=== PATIENT | male | born 1995 | race Caucasian/White ===

== ENCOUNTER 2024-03-12 20:51 | Inpatient (IN) | payer OTHER, SELFPAY ==
[2024-03-12] VITALS (14 sets, daily range): BP systolic 108–148; BP diastolic 73–92
--- NOTE | 2024-03-12 12:30 | ED.GENMED ---
ED Provider Triage
<Ángel Driscoll PA-C - Last Filed: 03/12/24 12:31>
-
Patient seen by provider in Triage?: Seen in Triage
Attestation: A medical screening examination has been initiated by a qualified medical provider. Based on the assessment performed at this time, it has been determined that an emergent medical condition may exist and the patient has been informed
that further medical evaluation and possible additional diagnostic testing may be needed.
HPI: 29-year-old male presents the emergency department for evaluation of fever, chest discomfort, nausea and vomiting. He is status post open mitral and aortic valve replacement due to endocarditis performed at [facility] on February 18. He is
currently on acute 4-hour ampicillin via PICC line. Developed vomiting this morning. Febrile for EMS. Not on any anticoagulants. He denies any opiate use, denies illicit substance use
GENERAL: Fatigued, falls asleep easily
EYE: No visual abnormalities.
NECK: Trachea midline
ENT: No visible abnormalities.
LUNGS: No acute respiratory distress
NEUROLOGICAL: Alert and oriented
SKIN: Skin intact. No visible changes.
MUSCULOSKELETAL: Moving extremities normally
PSYCH: Normal and appropriate interaction.
A/P: Patient febrile and tachycardic in triage, concern for bacteremia in the setting of central lines, he is quite somnolent. Easily, concern for substance use versus metabolic encephalopathy. Will obtain sepsis labs, chest x-ray for confirmation
of PICC line placement
This is a medical evaluation conducted in person to initiate diagnostic evaluation and provide initial therapeutics. Please see further documentation by the treating clinician.
History of Present Illness
<Ángel Driscoll PA-C - Last Filed: 03/12/24 12:31>
General
Chief Complaint: Abdominal Symptoms
Time Seen by Provider: 03/12/24 13:38
<Harpreet Mcallister PA-C - Last Filed: 03/12/24 17:22>
General
Source: patient, records and family
History of Present Illness
History of Present Illness:
29-year-old male with past medical history of hep C virus, previous substance abuse disorder (sober x 12 years), previous staph bacteremia causing endocarditis and multifocal septic emboli status post mechanical valve replacement 2021, replaced with
a bioprosthetic mitral valve in June 2022, recent admission in February of this year for recurring endocarditis send can Jose to [facility] with bacteremia, multifocal pneumonia, VDRF and new aortic insufficiency/mitral valve mass
subsequently transferred to [facility] where he was also found to have [employer] emboli, right ICA occlusion, mycotic aneurysm and status post sternotomy and mitral valve replacement and aortic valve replacement discharged on 02/29/2024 home with ampicillin and
Rocephin through right upper extremity PICC line presenting back to the emergency department today for evaluation of recurring nausea and vomiting and found to have a fever upon arrival to the ER. At present time patient just reports body aches and
generally feeling unwell and persistent fatigue. He has been giving himself the ampicillin and Rocephin as directed. Patient notes that he was unaware of the fever at home. Maintains that he is currently not using any IV substances or drugs.
Supposed to have follow-up with neurology and cardiology but unable to tell me when these follow-ups are.
Past History
<Ángel Driscoll PA-C - Last Filed: 03/12/24 12:31>
Past History
ED Past Medical History: Psychiatric (depression), Other (IVDA) and Other (psoriasis)
Patient has exhibited threatening behavior?: No
Social History
Tobacco: Smoker
Drug: Narcotics and IVDA
Personal: Single
Living: with family
Employment: Employed
<Harpreet Mcallister PA-C - Last Filed: 03/12/24 17:22>
Past History
ED Past Medical History: CVA and Valvular disease
ED Past Surgical History: Cardiac
Social History
Alcohol: None
Drug: Former user
Review of Systems
<Harpreet Mcallister PA-C - Last Filed: 03/12/24 17:22>
Review of Systems
All Other Systems: ROS reviewed and negative except as documented in HPI and ROS
Phy Exam
<Harpreet Mcallister PA-C - Last Filed: 03/12/24 17:22>
Physical Exam
Physical Exam:
GENERAL: Sleepy but arousable to voice and tactile stimuli but still is very tired and intermittently falls asleep during questioning
HEAD: NCAT
EYE: clear conjunctiva, pupils 3mm b/l
NECK: Supple
ENT: o/p clr, mmm.
CARDIAC: Regular rate and rhythm, systolic murmur .
LUNGS: Clear breath sounds bilaterally, no acute respiratory distress, no wheezes/rales/rhonchi
ABDOMEN: Soft, without focal tenderness, no r/g, no cvat
NEUROLOGICAL: Sleepy but arousable, answers questions appropriately
SKIN: Hot to the touch, skin intact. Diaphoretic, clammy
MUSCULOSKELETAL: No edema, well perfused.
PSYCH: Normal and appropriate interaction.
Scores
<Harpreet Mcallister PA-C - Last Filed: 03/12/24 17:22>
Heart Failure Risk
Heart Failure Risk Score: Not Applicable
Heart Score for Chest Pain Patients
STEMI patient?: Not applicable
Withdrawal Assessment of Alcohol
Withdrawal Assessment Completed?: Not applicable
Sepsis
<Harpreet Mcallister PA-C - Last Filed: 03/12/24 17:22>
Sepsis Screening
Sepsis Assessment: Sepsis
Sepsis Screen
Sepsis Screen: Sepsis
Date: 03/12/24
Time: 17:20
Course
<Ángel Driscoll PA-C - Last Filed: 03/12/24 12:31>
Orders/Labs/Results
Orders:
Orders
03/12/24
Electrocardiogram (*1) Stat
Comment: DONE EMR
03/12/24 12:27
CR Chest Single View Urgent
Comment:
Reason For Exam: PICC confirmation
03/12/24 12:28
Blood Culture Urgent
ARMANDO Source: Blood/Venous
Specimen Description:
03/12/24 12:34
Acetaminophen [Tylenol] 650 mg .ROUTE .STK-MED ONE
03/12/24 12:35
Acetaminophen [Tylenol] 650 mg PO NOW STA
03/12/24 12:51
COVID-19 Antigen Urgent
Source: Nasal Swab
Influenza A+B Rapid Molecular Urgent
ARMANDO Source: Nasal Swab
Specimen Description:
03/12/24 13:30
Complete Blood Count/With Diff Urgent
Comprehensive Metabolic Panel Urgent
Lactic Acid Q4H
Comment: CANCEL 2nd LACTIC ACID IF 1st LACTIC ACID IS LESS THAN 2
Prothrombin Time Urgent
Blood Culture Routine
ARMANDO Source: Blood/Venous
Specimen Description:
03/12/24 13:39
Blood Culture Urgent
ARMANDO Source: Blood/Venous
Specimen Description:
03/12/24 13:59
0.9% Sodium Chloride 1000 ml [Nss] 1,000 ml IV BOLUS
03/12/24 15:02
Alteplase [Cathflo/Activase] 2 mg INTRACATH NOW STA
03/12/24 17:07
Urinalysis Reflex To Culture Urgent
Date Specimen was Collected: 03/12/24
Time Specimen was Collected: 17:06
03/12/24 17:14
Add On- LAB Urgent
Tests Added?: urine drug abuse screen
Abnormal Lab Results
03/12/24
13:30
RBC 3.93 L 10^6/uL
(4.70-6.10)
Hgb 10.9 L g/dL
(13.0-18.0)
Hct 33.6 L %
(39.0-52.0)
MCHC 32.4 L g/dL
(33.0-37.0)
RDW 15.5 H %
(11.5-14.5)
Abs Immat Gran (auto) 0.1 H 10^3/uL
(0-0.05)
Absolute Neuts (auto) 8.3 H 10^3/uL
(1.4-6.5)
Absolute Lymphs (auto) 0.7 L 10^3/uL
(1.2-3.4)
Immature Gran % 1.4 H %
(0-0.5)
Neutrophils % 85.8 H %
(42.2-75.2)
Lymphocytes % 7.4 L %
(20.5-51.1)
Potassium 5.2 H mmol/L
(3.5-5.1)
Creatinine 0.5 L mg/dL
(0.7-1.3)
Alkaline Phosphatase 193 H U/L
(38-126)
03/12/24 13:30
03/12/24 13:30
Vital Signs
Initial and Last Documented VS:
Initial Vital Signs
Temp Pulse Resp BP Pulse Ox
102 F H 125 15 135/86 98
03/12/24 12:26 03/12/24 12:26 03/12/24 12:26 03/12/24 12:26 03/12/24 12:26
Last Documented Vital Signs
Temp Pulse Resp BP Pulse Ox
102 F H 113 12 144/80 96
03/12/24 12:26 03/12/24 16:15 03/12/24 16:15 03/12/24 16:00 03/12/24 16:15
<Harpreet Mcallister PA-C - Last Filed: 03/12/24 17:22>
Orders/Labs/Results
Orders:
Orders
03/12/24
Electrocardiogram (*1) Stat
Comment: DONE EMR
03/12/24 12:27
CR Chest Single View Urgent
Comment:
Reason For Exam: PICC confirmation
03/12/24 12:28
Blood Culture Urgent
ARMANDO Source: Blood/Venous
Specimen Description:
03/12/24 12:34
Acetaminophen [Tylenol] 650 mg .ROUTE .STK-MED ONE
03/12/24 12:35
Acetaminophen [Tylenol] 650 mg PO NOW STA
03/12/24 12:51
COVID-19 Antigen Urgent
Source: Nasal Swab
Influenza A+B Rapid Molecular Urgent
ARMANDO Source: Nasal Swab
Specimen Description:
03/12/24 13:30
Complete Blood Count/With Diff Urgent
Comprehensive Metabolic Panel Urgent
Lactic Acid Q4H
Comment: CANCEL 2nd LACTIC ACID IF 1st LACTIC ACID IS LESS THAN 2
Prothrombin Time Urgent
Blood Culture Routine
ARMANDO Source: Blood/Venous
Specimen Description:
03/12/24 13:39
Blood Culture Urgent
ARMANDO Source: Blood/Venous
Specimen Description:
03/12/24 13:59
0.9% Sodium Chloride 1000 ml [Nss] 1,000 ml IV BOLUS
03/12/24 15:02
Alteplase [Cathflo/Activase] 2 mg INTRACATH NOW STA
03/12/24 17:07
Urinalysis Reflex To Culture Urgent
Date Specimen was Collected: 03/12/24
Time Specimen was Collected: 17:06
03/12/24 17:14
Add On- LAB Urgent
Tests Added?: urine drug abuse screen
Abnormal Lab Results
03/12/24
13:30
RBC 3.93 L 10^6/uL
(4.70-6.10)
Hgb 10.9 L g/dL
(13.0-18.0)
Hct 33.6 L %
(39.0-52.0)
MCHC 32.4 L g/dL
(33.0-37.0)
RDW 15.5 H %
(11.5-14.5)
Abs Immat Gran (auto) 0.1 H 10^3/uL
(0-0.05)
Absolute Neuts (auto) 8.3 H 10^3/uL
(1.4-6.5)
Absolute Lymphs (auto) 0.7 L 10^3/uL
(1.2-3.4)
Immature Gran % 1.4 H %
(0-0.5)
Neutrophils % 85.8 H %
(42.2-75.2)
Lymphocytes % 7.4 L %
(20.5-51.1)
Potassium 5.2 H mmol/L
(3.5-5.1)
Creatinine 0.5 L mg/dL
(0.7-1.3)
Alkaline Phosphatase 193 H U/L
(38-126)
03/12/24 13:30
03/12/24 13:30
Vital Signs
Initial and Last Documented VS:
Initial Vital Signs
Temp Pulse Resp BP Pulse Ox
102 F H 125 15 135/86 98
03/12/24 12:26 03/12/24 12:26 03/12/24 12:26 03/12/24 12:26 03/12/24 12:26
Last Documented Vital Signs
Temp Pulse Resp BP Pulse Ox
102 F H 113 12 144/80 96
03/12/24 12:26 03/12/24 16:15 03/12/24 16:15 03/12/24 16:00 03/12/24 16:15
Waterworks Operator consulted with Physician
Waterworks Operator consulted with physician?: Yes
Name of Physician Consulted: Gregorio
<Harpreet Mcallister PA-C - Last Filed: 03/12/24 17:22>
MDM/Problems Addressed
Differential Diagnosis Includes:
Recurring endocarditis, urinary tract infection, pneumonia, COVID, flu or other viral etiology postoperative infection, PICC line infection
MDM/Problems Addressed:
29-year-old male with extensive cardiac past medical history status post recent admission for Enterococcus endocarditis and bacteremia presenting to the ER with persistent nausea and vomiting starting yesterday, found to have a fever of 102 on
arrival. Patient remains tachycardic. He is somnolent in the room but arousable to voice but intermittently falls asleep during exam. Based off record review it appears patient was supposed to have follow-up with neurology yesterday. Unclear if
patient went to that appointment. Given patient's fever and tachycardia, will initiate sepsis workup. 3 sets of blood cultures ordered due to patient's history of the endocarditis. Given recent admission with very complex medical case will
consult with P with anticipation patient will require transfer back to their facility. Tylenol ordered while in triage for fever. IV fluids ordered. Patient continues with his ampicillin so we will hold on providing with any other antibiotics
at this time.
<Harpreet Mcallister PA-C - Last Filed: 03/12/24 17:22>
*Radiology
Radiology exam reviewed: radiology read reviewed
*Pulse Oximetry
Patient hypoxic: no
*EKG
Interpreted by ED Provider?: Yes
Comparison EKG: no changes
Heart Rate: 125
Rate: tachycardiac
Rhythm: sinus
[place]: right axis deviation
Ischemia: no ischemia
*Banquet Manager Interpretation
Rate: tachycardiac
Rhythm: sinus
*Critical Care Note
Total Time (30-74mins, 75-104mins- exclusive of procedures): 30
comment:
Critical care statement: A total of 30 minutes of critical care time was provided for this patient. This includes management of unstable vital signs, evaluation of the patient at bedside, reviewing the patient's pertinent medical records, discussion
with consultants, review of old EKGs and review of pertinent medical records. This time with separate from time utilized to perform the aforementioned documented procedures
Data Reviewed
Review of Other/Old Records Reveals: Labs, Records and Discharge Summary
Source: patient, records and family
<Harpreet Mcallister PA-C - Last Filed: 03/12/24 17:22>
Patient Management
Discussion with other providers: Hospitalist and Manager Fraud
Escalation/DeEscalation of care consider admission/obs:
Spoke to hospitalist attending at [facility] who initially requested that we consult with our hospitalist team for possibility of patient staying here. Case was discussed with our hospitalist team who would prefer patient be disposition back to help
given complexity of case and recent admission there. Attending hospitalist at [facility] accepts patient in transfer. Patient while he remains tachycardic is otherwise hemodynamically stable.
ED Attending Note
<Ángel Driscoll PA-C - Last Filed: 03/12/24 12:31>
-
Portions of this chart may have been created with voice recognition software.� Occasional wrong word or��sound alike� substitutions may have occurred due to the inherent limitations of voice recognition software.
Discharge Plan
Departure
Patient Disposition: Acute Care Hospital
Date of Disposition: 03/12/24
Time of Disposition: 16:03
Discharge Problem:
Fever
Prescriptions:
No Action
buprenorphine-naloxone [Suboxone] 1 EACH film
8 mg sublingual BID
multivitamin [Okg-Ixtmvm-Nalkk] 1 EACH tablet
1 ea PO DAILY
ibuprofen [Advil] 200 MG tablet
600 mg PO Q6HPRN PRN (Reason: as directed)
Referrals:
Joby Coronel MD [Family Provider] -
Hospital Transfer
Other hospital: [facility]
I certify that the patient requires transfer: Yes
Discussed case with accepting physician: Dr. Inman
Reason for transfer: higher level of care
Interventions
Interventions:
*Risk Screen - Suicide Last Done: 03/12/24 12:26
*General Assessment Last Done: 03/12/24 13:49
*Neglect/Abuse Screening Last Done: 03/12/24 13:49
ED- Fall Risk Assessment Last Done: 03/12/24 13:49
*ED COVID-19 Vaccine History Last Done: 03/12/24 13:49
YH-Laaedv-Agtslntfee Assessment Last Done: 03/12/24 13:49
ED- Neurological Assessment Last Done: 03/12/24 13:49
ED-Skin Assessment Last Done: 03/12/24 13:49
Discharge Date and Time
Print Language: TOGOLESE
[2024-03-12] MEDS: TYLENOL 650 MG PO (12:38)
[2024-03-12 13:15] LABS: COVID-19 Antigen Negative (Negative)
[2024-03-12 13:39] LABS: % Basophils 0.7 % (0-2); % Immature Granulocytes 1.4 % (0-0.5); % Lymphocytes 7.4 % (20.5-51.1); % Monocytes 3.7 % (1.7-9.3); % Neutrophils 85.8 % (42.2-75.2); Absolute Basophils 0.1 10^3/uL (0-0.2); Absolute Eosinophils 0.1 10^3/uL (0-0.7); Absolute Immature Granulocytes 0.1 10^3/uL (0-0.05); Absolute Lymphocytes 0.7 10^3/uL (1.2-3.4); Absolute Monocytes 0.4 10^3/uL (0.1-0.6); Absolute Neutrophils 8.3 10^3/uL (1.4-6.5); Hematocrit 33.6 % (39.0-52.0); Hemoglobin 10.9 g/dL (13.0-18.0); Mean Corp Hgb Conc. 32.4 g/dL (33.0-37.0); Mean Corpuscular Hgb 27.7 pg (27.0-31.0); Mean Corpuscular Volume 85.5 fL (80.0-94.0); Mean Platelet Volume 9.2 fL (7.4-10.4); Nucleated Red Blood Cells % 0 % (-); Platelet Count 211 10^3/uL (130-400); Red Blood Cell Count 3.93 10^6/uL (4.70-6.10); Red Cell Dist. Width 15.5 % (11.5-14.5); White Blood Cell Count 9.7 10^3/uL (4.8-10.8)
[2024-03-12 13:49] LABS: INR 1.12; PT 14.2 Sec (11.4-14.6)
[2024-03-12 13:54] LABS: ALT (SGPT) 39 U/L (0-50); AST (SGOT) 41 U/L (17-59); Albumin 4.6 g/dl (3.5-5.0); Alkaline Phosphatase 193 U/L (38-126); Blood Urea Nitrogen 16 mg/dl (9-20); Calcium 9.7 mg/dl (8.4-10.2); Carbon Dioxide 25 mmol/L (22-30); Chloride 98 mmol/L (98-107); Glucose 99 mg/dl (70-99); Potassium 5.2 mmol/L (3.5-5.1); Sodium 137 mmol/L (135-145); Total Bilirubin 0.6 mg/dl (0.2-1.3); Total Protein 7.9 g/dl (6.3-8.2); eGFR > 60.00
[2024-03-12] MEDS: CATHFLO/ACTIVASE 2 MG INTRACATH (15:33)
[2024-03-12] MEDS: NSS 1000 IV (16:00)
[2024-03-12 17:28] LABS: Urine Albumin Negative (Neg - Trace); Urine Bilirubin Negative (Negative); Urine Character Clear (Clear); Urine Color Yellow; Urine Glucose Negative (Negative); Urine Ketone Negative (Negative); Urine Leukocyte Negative (Negative); Urine Nitrite Negative (Negative); Urine Occult Blood Negative (Negative); Urine Urobilinogen Negative (Neg - 1+)
[2024-03-12 17:34] LABS: Amphetamines Negative (Negative); Barbiturates Negative (Negative); Benzodiazepines Negative (Negative); Buprenorphine Positive (Negative); Cocaine Negative (Negative); Marijuana Negative (Negative); Methadone Negative (Negative); Methamphetamines Negative (Negative); Opiates Negative (Negative); Phencyclidine Negative (Negative); Tricyclic Antidepressants Negative (Negative)
[2024-03-12 18:01] LABS: Fentanyl, Urine Negative (Negative)
[2024-03-12] MEDS: ROCEPHIN 2000 MG IV (18:15)
--- NOTE | 2024-03-12 20:48 | HPS.HSE ---
Family Physician
-
Family Physician: Joby Coronel
Chief Complaint
-
vomiting
History of Present Illness
29-year-old male past medical history of hepatitis C, prior substance abuse disorder sober for 12 years, previous staph bacteremia resulting endocarditis and multifocal septic emboli status post mechanical mitral valve replacement in 2021 replaced
with a bioprosthetic mitral valve in June 2022, recent admission in February of this year for recurring endocarditis/bacteremia, multifocal pneumonia Vent dependent respiratory failure and new aortic insufficiency/mitral valve mass for which she
was subsequently transferred to [facility] found to have [employer]NE[employer] emboli, right ICA occlusion, mycotic aneurysm status post sternotomy, mitral valve replacement, aortic valve replacement discharged on 02/28 with home ampicillin/Rocephin to right upper extremity
PICC line presenting to the emergency room for evaluation of nausea and vomiting and found to have a fever upon arrival to the ER. He denies shortness of breath or cough. He only has chest pain when he was vomiting. He denies dizziness or
syncope.
At the present time patient just reports body aches, really feeling unwell and persistent fatigue. He denies currently using IV drugs 10 years. He is supposed to follow-up with neurology and cardiology but does not know when the follow-up is.
He smokes a pack of cigarettes a day.
Medical History
Past Medical History
Past Medical History: Reports Other ( hepatitis C, prior substance abuse disorder sober for 12 years, previous staph bacteremia resulting endocarditis and multifocal septic emboli status post mechanical mitral valve replacement in 2021 replaced with
a bioprosthetic mitral valve in June 2022, recent admission in February of this yea)
Past Surgical History: Reports Other
Social History
Tobacco: Non-smoker
Alcohol: None
Drug: None
Family History
Family History: Not pertinent
Allergies / Home Medications
Allergies reflects when Allergies were last updated in [employer].
Home Medications with original date entered in [employer]
Allergy/Medication List:
Allergies
Allergy/AdvReac Type Severity Reaction Status Date / Time
Interferons Allergy numbness, Verified 06/21/17 11:38
unable
speak,
visual
probs
Home Medications
buprenorphine 8 mg-naloxone 2 mg sublingual film (Suboxone) 8 mg sublingual BID 06/02/17
ibuprofen 200 mg tablet (Advil) 600 mg PO Q6HPRN PRN as directed 06/21/17
multivitamin (Vlc-Plvzsz-Liwil tablet) 1 ea PO DAILY 06/21/17
Review of Systems
-
History Source: Patient
A 12 point ROS was completed and negative except as noted: Yes
Constitutional: Reports No Symptoms
EENT: Reports No Symptoms
Respiratory: Reports No Symptoms
Cardiac: Reports No Symptoms
Abdomen/GI: Reports No Symptoms
: Reports No Symptoms
Musculoskeletal: Reports No Symptoms
Skin: Reports No Symptoms
Neurological: Reports No Symptoms
Endocrine: Reports No Symptoms
Hematologic/Lymphatic: Reports No Symptoms
Psych: Reports No Symptoms
Physical Exam
Vital Signs
Vital Signs
Temp Pulse Resp BP Pulse Ox
102 F H 122 17 131/73 96
03/12/24 12:26 03/12/24 19:45 03/12/24 19:45 03/12/24 19:00 03/12/24 18:15
Physical Exam
General: Well Developed, Well Nourished and No Apparent Distress
HEENT: NormoCephalic, Moist mucous membranes and Atraumatic
Respiratory: Clear
Cardiac: S1/S2 and Regular Rhythm; No Murmur or Rub
GI: Soft, Non Tender, Non Distended and Normal Bowel Sounds; No Organomegaly
Rectal: Deferred by Provider
Musculoskeletal: No Clubbing, No Cyanosis and No Edema
Skin: No Rash
Neuro: Nonfocal/grossly intact
Laboratory Results
-
03/12/24 13:30
03/12/24 13:30
Laboratory Results
PT 14.2 Sec (11.4-14.6) 03/12/24 13:30
INR 1.12 03/12/24 13:30
Lactic Acid Cancelled 03/12/24 16:30
Total Bilirubin 0.6 mg/dl (0.2-1.3) 03/12/24 13:30
AST 41 U/L (17-59) 03/12/24 13:30
ALT 39 U/L (0-50) 03/12/24 13:30
Alkaline Phosphatase 193 U/L (38-126) H 03/12/24 13:30
Data Reviewed
-
Lab Data: Labs Reviewed by me
Old Records: Reviewed
Impression/Plan
-
IMPRESSION:
PLAN:
# Sepsis (fever, tachycardia) secondary to persistent endocarditis of mitral/aortic valves versus bilateral pneumonia
# History of staph bacteremia with resulting in mitral endocarditis with multifocal septic emboli status post mechanical mitral valve replacement 2021, replaced with bioprosthetic mitral valve in June 2022, with recurrent endocarditis/bacteremia
with [employer] emboli, mycotic aneurysm status post mitral valve replacement, aortic valve replacement
-Chest x-ray shows patchy opacities within both lower lungs which may represent edema versus bilateral lower lobe pneumonia
-Patient currently has bioprosthetic aortic and mitral valves most recently replaced a few weeks ago at [place]
-Blood cultures pending
-IV fluids
-Continue ampicillin/ceftriaxone
-Add vancomycin
-Patient accepted for transfer at [facility]
-If patient will need to stay further, ID and cardiology consult
History of hepatitis C treated
Prior substance abuse with IV drug
-Not used in 10 years
Daily smoker
-Continue patch
Full code
DVT prophylaxis�heparin
Regular diet
[2024-03-12] MEDS: AMPICILLIN 108 MG IV (21:08)
[2024-03-12] MEDS: TYLENOL 1000 MG PO (21:10)
[2024-03-13] VITALS (11 sets, daily range): BP systolic 116–137; BP diastolic 75–98; BMI 22.3
[2024-03-13] MEDS: VANCOCIN 535 MG IV
[2024-03-13] MEDS: AMPICILLIN 108 MG IV ×4 (03:20→14:08)
[2024-03-13 06:47] LABS: % Basophils 0.7 % (0-2); % Eosinophils 6.2 % (0-6); % Lymphocytes 13.8 % (20.5-51.1); % Monocytes 13.4 % (1.7-9.3); % Neutrophils 64.9 % (42.2-75.2); Absolute Eosinophils 0.4 10^3/uL (0-0.7); Absolute Immature Granulocytes 0.1 10^3/uL (0-0.05); Absolute Lymphocytes 0.8 10^3/uL (1.2-3.4); Absolute Monocytes 0.8 10^3/uL (0.1-0.6); Absolute Neutrophils 3.9 10^3/uL (1.4-6.5); Hematocrit 28.4 % (39.0-52.0); Hemoglobin 9.2 g/dL (13.0-18.0); Mean Corp Hgb Conc. 32.4 g/dL (33.0-37.0); Mean Corpuscular Hgb 27.7 pg (27.0-31.0); Mean Corpuscular Volume 85.5 fL (80.0-94.0); Mean Platelet Volume 9.2 fL (7.4-10.4); Nucleated Red Blood Cells % 0 % (-); Platelet Count 176 10^3/uL (130-400); Red Blood Cell Count 3.32 10^6/uL (4.70-6.10); Red Cell Dist. Width 15.5 % (11.5-14.5)
[2024-03-13] MEDS: ROCEPHIN 2000 MG IV (06:52)
[2024-03-13] MEDS: STERILE WATER FOR INJECTION 20 ML IV (06:52)
--- NOTE | 2024-03-13 07:39 | W.PN.HOSP.TC ---
Addendum entered and electronically signed by Nimesh Jones MD 03/13/24 16:08:
Discussed with patient's CT surgery team at [facility], Dr. Burrell, who recommends no systemic anticoagulation due to patient's hemorrhagic stroke in February 2024.
Will monitor, continue aspirin 81 mg daily for now.
Patient's initial fever of 102 upon presentation the ER could very well be secondary to his right upper extremity DVT.
ID consult pending.
Original Note:
Today's Communication/Plan
-
Transfer to [facility] when bed available
Assessment / Plan
Assessment / Plan
HPI: 29-year-old male past medical history of hepatitis C, prior substance abuse disorder sober for 12 years, previous staph bacteremia resulting endocarditis and multifocal septic emboli status post mechanical mitral valve replacement in 2021
replaced with a bioprosthetic mitral valve in June 2022, recent admission in February of this year for recurring endocarditis/bacteremia, multifocal pneumonia Vent dependent respiratory failure and new aortic insufficiency/mitral valve mass for
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
extremity PICC line presenting to the emergency room for evaluation of nausea and vomiting and found to have a fever upon arrival to the ER. He denies shortness of breath or cough. He only has chest pain when he was vomiting. He denies dizziness
or syncope.
At the present time patient just reports body aches, really feeling unwell and persistent fatigue. He denies currently using IV drugs 10 years. He is supposed to follow-up with neurology and cardiology but does not know when the follow-up is. He
smokes a pack of cigarettes a day.
# Sepsis (fever, tachycardia) secondary to persistent endocarditis of mitral/aortic valves versus bilateral pneumonia
# History of staph bacteremia with resulting in mitral endocarditis with multifocal septic emboli status post mechanical mitral valve replacement 2021, replaced with bioprosthetic mitral valve in June 2022, with recurrent endocarditis/bacteremia
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
-Chest x-ray shows patchy opacities within both lower lungs which may represent edema versus bilateral lower lobe pneumonia
-Patient currently has bioprosthetic aortic and mitral valves most recently replaced a few weeks ago at [place]
-03/12 Blood culture NTD, 03/13 blood culture pending
-Continue ampicillin/ceftriaxone. Vancomycin added 03/12
-Patient accepted for transfer at [facility], awaiting bed
-C/s ID
# Right upper extremity DVT
RUE US shows 'nonocclusive thrombus within the right internal jugular vein. Nonocclusive thrombus is also present within the right subclavian and axillary veins as well as the proximal basilic vein. There is nonocclusive clot within the visualized
brachial veins'
Pull PICC
Mom declines therapeutic lovenox due to history of hemorrhagic stroke February 2024
Awaiting callback from patient's library manager at [facility] to discuss treatment
#Migraine headache
Continue valproic acid 500 mg twice a day
History of hepatitis C treated
Prior substance abuse with IV drug
-Not used in 10 years
-Continue Suboxone as needed
Daily smoker
-Continue patch
DVT prophylaxis�subcu heparin
Full code
Discussed with mom twice on 03/13
Total time spent to see the patient on the floor, examine the patient, review data and lab results, discuss treatment plan with patient, nursing staff around 65 minutes.
Physical Exam
General: No acute distress
HEENT: Normocephalic, Atraumatic, EOMI, MMM
Respiratory: Clear to Auscultation bilaterally
Cardiac: Normal S1/S2, Regular Rate and Rhythm
GI: Soft, Nontender, Nondistended, Normal Bowel Sounds
Extremities: No Clubbing, Cyanosis
Right forearm with edema
Neuro: Nonfocal/Grossly Intact
Psych: Calm, Cooperative
Derm: No Visible lesions
Anticipated Discharge: Within 24 hours
Subjective/Interval History
-
Date of Service: March 13, 2024
Patient complains of migraine headache. No fever, no chest pain, no shortness of breath. No nausea, no vomiting.
Objective Data
-
Labs:
Laboratory Results
03/13/24
06:35
WBC 6.0
Hgb 9.2 L
Hct 28.4 L
Plt Count 176
Sodium Pending
Potassium Pending
Chloride Pending
Carbon Dioxide Pending
BUN Pending
Creatinine Pending
Glucose Pending
Calcium Pending
Total Bilirubin Pending
AST Pending
ALT Pending
Alkaline Phosphatase Pending
Vital Signs:
Vital Signs
Temp Pulse Resp BP Pulse Ox
98.4 F 89 17 116/75 99
03/13/24 03:59 03/13/24 01:15 03/13/24 00:05 03/13/24 00:05 03/13/24 01:15
[2024-03-13] MEDS: NICODERM TRANSDERMAL 14 MG TRANSDERM (08:13)
[2024-03-13 09:37] LABS: ALT (SGPT) 25 U/L (0-50); AST (SGOT) 24 U/L (17-59); Albumin 3.5 g/dl (3.5-5.0); Alkaline Phosphatase 130 U/L (38-126); Blood Urea Nitrogen 9 mg/dl (9-20); Carbon Dioxide 21 mmol/L (22-30); Chloride 103 mmol/L (98-107); Estimated Creatinine Clearance > 125 ml/min; Glucose 126 mg/dl (70-99); Sodium 137 mmol/L (135-145); Total Bilirubin 0.4 mg/dl (0.2-1.3); Total Protein 6.3 g/dl (6.3-8.2); eGFR > 60.00
--- NOTE | 2024-03-13 09:59 | PHA.VAN.IN ---
Assessment
- Assessment
Renal Function: Appears similar to baseline
Concomitant Antimicrobials: ampicillin, ceftriaxone
AUC Dosing Plan
- Dosing Variables
Dosing Weight (kg): 70
Dosing CrCl (ml/min): 125
Vd coefficient (L/kg): 0.7
- Empiric Dosing
Initial / Loading Dose: Vanc 1750mg - 03/13 00:00
Maintenance Regimen: Vanc 750mg Q8H starting at 1400
Estimated AUC (mcg*h/mL): 448
Estimated Peak (mcg*h/mL): 26.4
Estimated Trough (mcg/ml): 12.4
Estimated Half Life (H): 6.4
- Monitoring
No levels ordered at this time: consider levels in next few days
Pharmacokinetics Vancomycin I
- -
Patient Age: 29
Patient Sex: Male
Vancomycin Day #: 1
Indication: Endocarditis
Requesting Provider: Dr. Myles
Pertinent Antimicrobial Allergies:
no pertinent antibiotic allergies
Height / Weight:
Height 5 ft 8 in
Actual Weight 70.4 kg
Pertinent Past Medical History: EMILY (sober 10+ years), MVR (2021, 2022)
- Vital Signs / Lab Results
Temp Pulse Resp BP Pulse Ox
98.7 F 96 17 130/92 98
03/13/24 08:08 03/13/24 05:15 03/13/24 00:05 03/13/24 08:15 03/13/24 08:15
Lab Results - Hematology
03/12/24 03/13/24
13:30 06:35
WBC 9.7 6.0
Lab Results - Chemistry
03/12/24 03/13/24
13:30 06:35
BUN 16 9
Creatinine 0.5 L 0.4 L
Estimated Creat Clear > 125
Albumin 4.6 3.5
03/12/24 03/12/24
13:30 16:30
Lactic Acid 1.0 Cancelled
Lab Results - Urine
03/12/24
17:07
Urine Nitrite (Reflex) Negative
Leukocyte Esterase Rfl Negative
Microbiology Results
03/12/24 12:51 Influenza Types A & B (JAZLYN) - Final
Nasal Swab Negative for Influenza A & B, NAAT
Negative results must be combined with clinical observations
and patient history.
Nucleic Acid Amplification test (NAAT)performed on the
[employer] NOW platform.
[2024-03-13] MEDS: PEPCID 20 MG PO (11:24)
[2024-03-13] MEDS: LOW STRENGTH ASPIRIN 81 MG PO (11:24)
[2024-03-13] MEDS: TOPROL XL 25 MG PO (11:24)
[2024-03-13] MEDS: DEPAKENE 250 MG PO ×2 (11:24→12:06)
[2024-03-13] MEDS: NSS 1000 IV ×3 (11:25→22:30)
--- NOTE | 2024-03-13 11:56 | PTCARENOTE ---
Notified of US results. Patient and mother refuse lovenox 'until [facility] is consulted' because patient has had 'multiple hemorrhagic strokes and 20 mini strokes in past.' Do aware of all the above. VAT RN notified of order to dc PICC and send tip
for culture.
--- NOTE | 2024-03-13 13:31 | VATNOTE ---
PICC removed and tip sent for culture as ordered.
--- NOTE | 2024-03-13 15:35 | EDRN ---
this [facility] spoke with [facility] Transfer [facility] staff via telephone at this time. clinical update on this pt was given. per [facility] transfer center staff, there are no beds available at this time, waiting for discharges.
[2024-03-13] MEDS: VANCOCIN 150 IV ×2 (15:53→22:29)
--- NOTE | 2024-03-13 16:01 | CON.ID ---
Consultation
-
Date/Time Consultation Requested: 03/13/24 15:27
Date/Time Consultation Performed: 03/13/24 16:01
Requesting Provider: Dr Jones
Performing Provider: Dr Cadena
Reason for Consultation: fever, hx endocarditis
Chief Complaint / Past History
Chief Complaint
vomiting
History of Present Illness
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 Unfortunately
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 He
has not had a colonoscopy. No family history of GI cancers in the young. No UTIs. Of note, mom shares that a filling in his mouth came out after Jun 2022 and he has been told by medical team not to go to the dentist. Then molar broke in December. He
has been working to get clearance from cardiology to see dentist. Mom tells me molar is quite painful. He now represents for fever, myalgias fatigue. He has been struggling with intermittent migraines associated with nausea and vomiting. He went
to [facility] ER this weekend for the migraine and had a PIV placed below the PICC line which later became red and swollen. PIV was then removed. Then when RN came to change his dressing today, she said to him that the site was red but no puss, patient
did not feel tenderness. No cough or shortness of breath. Does have the expected post operative chest pain with vomiting which has now resolved.
Reports no IVDU for 10 years.
Since arrival here he has been febrile to 102.0, bp stable, tachycardic to the low 100s, wbc initially 9.7, hgb 10.9, plt 211, L shift noted on arrival and resolved today, AEC today 0.4, na 137, cr 0.4, lactic acid 1.0, tbili 0.6, ast 41, alt 39,
alk pohs 193, ua negative, UDS + today for buprenorphine, US RUE with nonocclusive thrombus in the RIJ, CXR: PICC in place, pathcy bilateral infiltrates, blood cultures x2 in progress, PICC was removed and cath tip sent for culture. Patient is
currently on vancomycin, ampicillin and ceftriaxone. Patient is planned for transfer to [facility], ID is consulted for assistance with management.
Past History
Additional Past Medical History:
hepatitis C
prior substance abuse disorder sober for 12 years
hemorrhagic stroke
Additional Past Surgical History:
as per hpi
Allergy History:
Interferons Allergy (Verified 03/13/24 00:06)
numbness, unable speak, visual probs
Medications Reviewed: Yes
Social History
Tobacco: Non-Smoker
Alcohol: None
Drug: None
Family History
Family History: Not Pertinent
Review of Systems
Review of Systems
General: Fever and Chills
All systems: All other systems were reviewed and were negative
Vital Signs
Temp Pulse Resp BP Pulse Ox
98.3 F 108 18 127/80 99
03/13/24 15:48 03/13/24 15:48 03/13/24 15:48 03/13/24 15:48 03/13/24 15:48
Physical Exam
Physical Exam
Constitutional: No Acute Distress
Cardiovascular: Regular Rate and S1/S2; Negative Murmur or Rub
Pulmonary: Clear and Symmetric; Negative Wheezes, Rales or Rhonchi
Gastrointestinal: Soft, Non Tender, Non Distended and Normal Bowel Sounds
Extremities: Other (no osler nodes or janeway lesions); Negative Splinter Hemorrhage
Skin: Warm and Dry; Negative Rash or Jaundice
Lab / Diagnostic Study Results
03/13/24 06:35
03/13/24 06:35
Abs Immat Gran (auto) 0.1 10^3/uL (0-0.05) H 03/13/24 06:35
Absolute Neuts (auto) 3.9 10^3/uL (1.4-6.5) 03/13/24 06:35
Absolute Lymphs (auto) 0.8 10^3/uL (1.2-3.4) L 03/13/24 06:35
Absolute Monos (auto) 0.8 10^3/uL (0.1-0.6) H 03/13/24 06:35
Absolute Basos (auto) 0.0 10^3/uL (0-0.2) 03/13/24 06:35
Immature Gran % 1.0 % (0-0.5) H 03/13/24 06:35
Neutrophils % 64.9 % (42.2-75.2) 03/13/24 06:35
Lymphocytes % 13.8 % (20.5-51.1) L 03/13/24 06:35
Monocytes % 13.4 % (1.7-9.3) H 03/13/24 06:35
Eosinophils % 6.2 % (0-6) H 03/13/24 06:35
Basophils % 0.7 % (0-2) 03/13/24 06:35
PT 14.2 Sec (11.4-14.6) 03/12/24 13:30
INR 1.12 03/12/24 13:30
Lactic Acid Cancelled 03/12/24 16:30
Microbiology Results
Micro:
03/13/24 11:36 Blood Culture - Pending
Blood/Venous
03/12/24 13:30 Blood Culture - Preliminary
Blood/Venous No Growth in 24 hours- Final report to follow
03/13/24 13:08 Catheter Tip Culture - Pending
Catheter Tip
03/13/24 04:01 MRSA Screen - Pending
Nose
03/12/24 12:51 Influenza Types A & B (JAZLYN) - Final
Nasal Swab Negative for Influenza A & B, NAAT
Negative results must be combined with clinical observations
and patient history.
Nucleic Acid Amplification test (NAAT)performed on the
[employer] NOW platform.
Assessment / Plan
H/o redo MVR 02/19/24 presumably due to enterococcus
Prior history of MVR 2021 due
Fevers
DVT
- blood cultures x2 in progress
- PICC removed and cath tip being sent for culture
- covid ag negative, influenza swab
- ua no pyuria
- CXR most likely pulmonary edema, less likely pneumonia
- agree with echo and CT chest
- panelipse - h/o broken molar, dental pain and recent cryptogenic bacteremia
- seems likely that patient's second episode of endocarditis was due to enterococcus based on his home IV antibiotics
- obtain records from [facility]
- agree with addition of vancomycin
- switch to zosyn (meropenem contraindicated by valproic acid); hold ampicillin and ceftriaxone for now
AW
--- NOTE | 2024-03-13 17:25 | CON.ID ---
Addendum entered and electronically signed by Fany Cadena MD 03/14/24 10:11:
I personally performed a history and physical exam of the patient and discussed management with the resident. I reviewed the resident's note and agree with the documented findings and plan of care HPI/CC; please see my seperately documented note for
plan
Original Note:
Consultation
-
Date/Time Consultation Requested: 03/13/24, 15:27pm
Date/Time Consultation Performed: 03/13/24, 5:27pm
Requesting Provider: Nimesh Jones MD
Performing Provider: Aimee Gaona MD for Fany Cadena MD
Reason for Consultation: suspected endocarditis.
Chief Complaint / Past History
Chief Complaint
Vomiting, and fever - X 1 day.
History of Present Illness
Fidel is a 29 Yo M, with a PMHx significant for prior drug use disorder sober for 12 years and recent staph endocarditis X 3, septic emboli s/p mechanical mitral valve in 2021, then replaced with biprosthetic mitral valve in 06/2022. On 02/19/2024, he
was diagnosed with enterococcus endocarditis at [facility], and underwent a new mitral valve placement. 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
and he was discharged home on 02/29/24. On the day of discharge he had migrane, which lasted for 3 days. He also had a similar episode of vomiting sweating and chills with fever after hospital discharge and is not related to migrane. He finished a
course of ampicillin and ceftriaxone via PICC line. He also had PIV placed below PICC line - which was also red and swollen on his right side. Both were removed when I saw him.
He had a filling of his right molar tooth done even before he ever had endocarditis for the first time. That filling fell off in the hospital during his recent admission, and his migranes after the hospital discharge were different from his past
migranes, he had a throbbing pain radiating into his eye today. His molars on the right and left are very painful R>L. He denies having pus in his tooth, redness or swelling of painful tooth, cough, SOB, palpitations, sputum production, change in
bowel habits or change in bladder habits.
Surgical site was clean with no infection per his visiting nurse.
Since arrival here he has been febrile to 102.0, bp stable, tachycardic to the low 100s, wbc initially 9.7, hgb 10.9, plt 211, L shift noted on arrival and resolved today, AEC today 0.4, na 137, cr 0.4, lactic acid 1.0, tbili 0.6, ast 41, alt 39,
alk pohs 193, ua negative, UDS + today for buprenorphine, US RUE with nonocclusive thrombus in the RIJ, CXR: PICC in place, pathcy bilateral infiltrates, blood cultures x2 in progress, PICC was removed and cath tip sent for culture. Patient is
currently on vancomycin, ampicillin and ceftriaxone. Patient is planned for transfer to [facility].
Past History
Past Medical History: Other (recurrent endocarditions, past substance use disorder sober for 12 years, )
Past Surgical History: Other (MVR replacement - 2021,2022, 2023. AVR in 2023.)
Allergy History:
Interferons Allergy (Verified 03/13/24 00:06)
numbness, unable speak, visual probs
Medications Reviewed: Yes
Social History
Tobacco: Non-Smoker
Alcohol: None
Drug: None
Personal: Single
Living: With Family
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
Family History
Family History: Not Pertinent
Review of Systems
Review of Systems
General: Fever, Chills and Change in Appetite
HEENT: Headache; Negative Lymphadenopathy or Stiff Neck
Cardiovascular: Chest Pain and Edema; Negative Dyspnea or Palpitations
Respiratory: Negative Cough, Hemoptysis or Sputum Production
Gasteroenterology: Nausea and Vomiting
Genital / Urological: Negative Dysuria or Hematuria
Endocrine: Weakness and Fatigue
Musculoskeletal: Myalgias
Neurological: Headache
Vital Signs
Temp Pulse Resp BP Pulse Ox
98.3 F 108 18 127/80 99
03/13/24 15:48 03/13/24 15:48 03/13/24 15:48 03/13/24 15:48 03/13/24 15:48
Physical Exam
Physical Exam
Constitutional: Comfortable
Eyes: Negative Pupils Equal
Cardiovascular: Regular Rate, S1/S2 and Murmur (systolic murmur 3/6)
Pulmonary: Clear; Negative Wheezes, Rales or Rhonchi
Gastrointestinal: Soft, Non Tender, Non Distended and Normal Bowel Sounds
Extremities: Edema (1+ pitting edema)
Skin: Warm and Other (No Osler nodes, no Janeway lesions); Negative Rash
Neurological: Awake and Alert; Negative Oriented
Psychological: Calm
Lab / Diagnostic Study Results
03/13/24 06:35
03/13/24 06:35
Abs Immat Gran (auto) 0.1 10^3/uL (0-0.05) H 03/13/24 06:35
Absolute Neuts (auto) 3.9 10^3/uL (1.4-6.5) 03/13/24 06:35
Absolute Lymphs (auto) 0.8 10^3/uL (1.2-3.4) L 03/13/24 06:35
Absolute Monos (auto) 0.8 10^3/uL (0.1-0.6) H 03/13/24 06:35
Absolute Basos (auto) 0.0 10^3/uL (0-0.2) 03/13/24 06:35
Immature Gran % 1.0 % (0-0.5) H 03/13/24 06:35
Neutrophils % 64.9 % (42.2-75.2) 03/13/24 06:35
Lymphocytes % 13.8 % (20.5-51.1) L 03/13/24 06:35
Monocytes % 13.4 % (1.7-9.3) H 03/13/24 06:35
Eosinophils % 6.2 % (0-6) H 03/13/24 06:35
Basophils % 0.7 % (0-2) 03/13/24 06:35
PT 14.2 Sec (11.4-14.6) 03/12/24 13:30
INR 1.12 03/12/24 13:30
Lactic Acid Cancelled 03/12/24 16:30
Microbiology Results
Micro:
03/13/24 11:36 Blood Culture - Pending
Blood/Venous
03/12/24 13:30 Blood Culture - Preliminary
Blood/Venous No Growth in 24 hours- Final report to follow
03/13/24 13:08 Catheter Tip Culture - Pending
Catheter Tip
03/13/24 04:01 MRSA Screen - Pending
Nose
03/12/24 12:51 Influenza Types A & B (JAZLYN) - Final
Nasal Swab Negative for Influenza A & B, NAAT
Negative results must be combined with clinical observations
and patient history.
Nucleic Acid Amplification test (NAAT)performed on the
[employer] platform.
Assessment / Plan
Assessment -
subjective - febrile, tachycardic, tachypnea - SIRS positive.
Objective - WBC count - 6.2, left shift, Hb - 10.9 to 9.2, normocytic anemia, platelet count - abnormal, chemistry - hyperkalemia - mild - 5.2, resolved., sr cr - 0.5, AST, ALT - normal, ALP - 193.
echocardiogram - LVEF - 62%, biprosthetic valves look normal.
CXR - pulmonary edema
MVR redo and AVR on 02/19/24.
Fevers
DVT.
Plan -
Blood cultures X 2 pending
PICC tip sent for culture
obtain echocardiogram and orthopantogram
COVID and flu negative,
staph X 3 endocarditis.
prophylactic antibiotic - in remission for 1 year.
Recent enterococcus endocarditis.
Continue vancomycin, start zosyn.
Stop ampicillin and ceftriaxone for now.
--- NOTE | 2024-03-13 17:39 | CM ---
CM reviewed medical records. Plan for transfer to [facility] when bed is available.
[2024-03-13] MEDS: ZOSYN 100 IV (18:09)
[2024-03-13] MEDS: DEPAKENE 500 MG PO (20:11)
[2024-03-14] MEDS: ZOSYN 100 IV ×5 (00:11→23:22)
[2024-03-14] MEDS: MOTRIN 400 MG PO ×3 (00:11→22:27)
[2024-03-14 03:02] VITALS: BP 111/80
[2024-03-14] MEDS: VANCOCIN 150 IV ×3 (06:02→22:16)
[2024-03-14] MEDS: NSS IV (07:40)
[2024-03-14 07:51] VITALS: BP 127/76
[2024-03-14] MEDS: NICODERM TRANSDERMAL 14 MG TRANSDERM (08:02)
[2024-03-14] MEDS: DEPAKENE 500 MG PO ×2 (08:03→19:43)
[2024-03-14] MEDS: LOW STRENGTH ASPIRIN 81 MG PO (08:03)
[2024-03-14] MEDS: PEPCID 20 MG PO (08:03)
[2024-03-14] MEDS: TOPROL XL 25 MG PO (08:04)
--- NOTE | 2024-03-14 08:47 | W.PN.HOSP.TC ---
Today's Communication/Plan
-
see bold
Assessment / Plan
Assessment / Plan
HPI: 29-year-old male past medical history of hepatitis C, prior substance abuse disorder sober for 12 years, previous staph bacteremia resulting endocarditis and multifocal septic emboli status post mechanical mitral valve replacement in 2021
replaced with a bioprosthetic mitral valve in June 2022, recent admission in February of this year for recurring endocarditis/bacteremia, multifocal pneumonia Vent dependent respiratory failure and new aortic insufficiency/mitral valve mass for
which she was subsequently transferred to [facility] found to have STULL HEWER emboli, right ICA occlusion, mycotic aneurysm status post sternotomy, mitral valve replacement, aortic valve replacement discharged on 02/28 with home ampicillin/Rocephin to right upper
extremity PICC line presenting to the emergency room for evaluation of nausea and vomiting and found to have a fever upon arrival to the ER. He denies shortness of breath or cough. He only has chest pain when he was vomiting. He denies dizziness
or syncope.
At the present time patient just reports body aches, really feeling unwell and persistent fatigue. He denies currently using IV drugs 10 years. He is supposed to follow-up with neurology and cardiology but does not know when the follow-up is. He
smokes a pack of cigarettes a day.
# Systemic inflammatory response syndrome with fever and tachycardia
# History of staph bacteremia with resulting in mitral endocarditis with multifocal septic emboli status post mechanical mitral valve replacement 2021, replaced with bioprosthetic mitral valve in June 2022, with recurrent endocarditis/bacteremia
with STULL HEWER emboli, mycotic aneurysm status post mitral valve replacement, aortic valve replacement
-Chest x-ray shows patchy opacities within both lower lungs which may represent edema versus bilateral lower lobe pneumonia
-Patient currently has bioprosthetic aortic and mitral valves most recently replaced a few weeks ago at [place]
-03/12 Blood culture NTD, 03/13 blood culture NTD, 03/13 PICC tip culture NTD
-Chest CT neg for PNA, shows pulm edema
-Appreciate ID input, antibiotics changed to Zosyn and vancomycin
-Patient accepted for transfer at [facility], awaiting bed
-Was on ampicillin and Rocephin at home
#Pulmonary edema
Start IV Lasix, trend creatinine
# Right upper extremity DVT
RUE US shows 'nonocclusive thrombus within the right internal jugular vein. Nonocclusive thrombus is also present within the right subclavian and axillary veins as well as the proximal basilic vein. There is nonocclusive clot within the visualized
brachial veins'
PICC pulled 03/[address] patient CT surgery team, no anticoagulation secondary to history of hemorrhagic stroke in February 2024
Continue aspirin 81 mg daily
#Migraine headache
Continue valproic acid 500 mg twice a day
History of hepatitis C treated
Prior substance abuse with IV drug
-Not used in 10 years
-Continue Suboxone as needed
Daily smoker
-Continue patch
DVT prophylaxis�SCDs, patient refusing subcutaneous heparin
Full code
Discussed with mom twice on 03/13, 03/14
Total time spent to see the patient on the floor, examine the patient, review data and lab results, discuss treatment plan with patient, nursing staff around 55 minutes.
Physical Exam
General: No acute distress
HEENT: Normocephalic, Atraumatic, EOMI, MMM
Respiratory: Clear to Auscultation bilaterally
Cardiac: Normal S1/S2, Regular Rate and Rhythm
GI: Soft, Nontender, Nondistended, Normal Bowel Sounds
Extremities: No Clubbing, Cyanosis
Right forearm with edema
Bilateral lower extremity edema noted
Neuro: Nonfocal/Grossly Intact
Anticipated Discharge: Within 24 hours
Subjective/Interval History
-
Date of Service: March 14, 2024
Patient denies shortness of breath, denies chest pain, denies headache. No fever, no vomiting.
Objective Data
-
Labs:
Laboratory Results
03/14/24
06:00
WBC Pending
Hgb Pending
Hct Pending
Plt Count Pending
Sodium Pending
Potassium Pending
Chloride Pending
Carbon Dioxide Pending
BUN Pending
Creatinine Pending
Glucose Pending
Calcium Pending
Vital Signs:
Vital Signs
Temp Pulse Resp BP Pulse Ox
97.2 F 88 16 127/76 100
03/14/24 07:51 03/14/24 08:04 03/14/24 07:51 03/14/24 08:04 03/14/24 07:51
I&O
03/13/24 03/14/24 03/15/24
06:59 06:59 06:59
Intake Total 1500 / 1500
Balance 1500 / 1500
--- NOTE | 2024-03-14 09:07 | W.PN.ID1 ---
Addendum entered and electronically signed by Fany Cadena MD 03/14/24 15:41:
I saw and evaluated the patient. I reviewed the resident�s note and agree with findings and plan as documented in the resident�s note
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 Previously on suppression for S aurues. Source of Enterococcus was cryptogenic and hypothesized to be GI. He
is s/p redo MVR/AVR on 02/19/2024 and was discharged on continuous ampicillin plus BID ceftriaxone and presented here yesterday for fever, chills, redness/swelling around PICC line and is s/p PICC removal. Blood cultures and PICC tip culture all in
progress. Currently notably improved on vancomycin and zosyn.
H/o redo MVR 02/19/24 and AVR presumably due to enterococcus
Prior history of MVR x2 due to MSSA
Fevers - resolved
DVT
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
- PICC removed and cath tip sent for culture - no growth to date
- TTE no lesions
- CT PE: no PE, mediastinal lymphadenopathy is noted and was expected given recent endocarditis
- panelipse - radicular cyst suggests resolved odontogenic infection - follow up with OMFS when cleared by CT surgery
- await records from [facility]
- continue vancomycin and zosyn while following cultures and clinically; hold ampicillin and ceftriaxone for now
- would follow clinically
AW
Original Note:
Date of Service
Date of Service: March 14, 2024
Today's Communication
Continue vancomycin and Zosyn.
Pending cultures.
Assessment / Plan
Assessment -
subjective - febrile, tachycardic, tachypnea - SIRS positive.
Objective - WBC count - 6.2, left shift, Hb - 10.9 to 9.2, normocytic anemia, platelet count - abnormal, chemistry - hyperkalemia - mild - 5.2, resolved., sr cr - 0.5, AST, ALT - normal, ALP - 193.
echocardiogram - LVEF - 62%, biprosthetic valves look normal.
CT chest - No emboli in large pulmonary vessels.
CXR - pulmonary edema
Orthopantogram-7.5 mm radicular cyst at the posterior root of the first mandibular molar, root canal with a crown at left second maxillary molar.
MVR redo and AVR on 02/19/24.
Fevers
DVT.
Plan -
Blood cultures X 2 pending
PICC tip has pending cultures
COVID and flu negative,
staph X 3 endocarditis. Diagnosis less likely to be endocarditis. Source of sepsis still remains unknown.
Antibiotics used by patient since 2021-rifampin 300 mg, cefuroxime 200 mg, cefadroxil 500 mg for 1 year from August 2022 to August 2023.
Recent enterococcus endocarditis.
Continue vancomycin -day 3.zosyn-day 2.
Chief Complaint
-: Fever and Clinical Sepsis
Subjective / Review of Systems
Review of Systems: No Fever, No Chills, No Headache, No Cough, No Sputum Production, No Chest Pain, No Palpitations, No Abdominal Pain, No Nausea, No Vomiting, No Dysuria and No Skin Rash
Vital Signs / Physical Exam
Vital Signs
Vital Signs
Temp Pulse Resp BP Pulse Ox
97.2 F 88 16 127/76 100
03/14/24 07:51 03/14/24 08:04 03/14/24 07:51 03/14/24 08:04 03/14/24 07:51
Physical Exam
Constitutional: Comfortable
Cardiovascular: Regular Rate, S1/S2 and Murmur (systolic murmur, 3/6); Negative Rub or Gallop
Pulmonary: Clear; Negative Wheezes, Rales or Rhonchi
Gastrointestinal: Soft, Non Tender, Non Distended and Normal Bowel Sounds
Extremities: Edema (1 + pitting edema); Negative Splinter Hemorrhage or Janeway Lesions
Skin: Warm
Neurological: Awake and Alert
Psychological: Calm
Objective Data
Lab Data
PT 14.2 Sec (11.4-14.6) 03/12/24 13:30
INR 1.12 03/12/24 13:30
Estimated Creat Clear > 125 ml/min 03/13/24 06:35
Lactic Acid Cancelled 03/12/24 16:30
Total Bilirubin 0.4 mg/dl (0.2-1.3) 03/13/24 06:35
AST 24 U/L (17-59) 03/13/24 06:35
ALT 25 U/L (0-50) 03/13/24 06:35
Alkaline Phosphatase 130 U/L (38-126) H 03/13/24 06:35
Most recent labs reviewed.
CT Scan: Image Reviewed and Report Reviewed
Microbiology: Report Reviewed
Micro Results:
03/13/24 23:02 Influenza Types A & B (JAZLYN) - Final
Nasal Swab Negative for Influenza A & B, NAAT
Negative results must be combined with clinical observations
and patient history.
Nucleic Acid Amplification test (NAAT)performed on the
[employer] platform.
03/13/24 11:36 Blood Culture - Pending
Blood/Venous
03/12/24 13:30 Blood Culture - Preliminary
Blood/Venous No Growth in 24 hours- Final report to follow
03/13/24 13:08 Catheter Tip Culture - Pending
Catheter Tip
03/13/24 04:01 MRSA Screen - Pending
Nose
03/12/24 12:51 Influenza Types A & B (JAZLYN) - Final
Nasal Swab Negative for Influenza A & B, NAAT
Negative results must be combined with clinical observations
and patient history.
Nucleic Acid Amplification test (NAAT)performed on the
[employer] platform.
Orthopantogram-03/13/2024-
There is a 7.5 mm radicular cyst at the posterior root of the left first mandibular molar.
There is dental amalgam
There is root canal with a crown at the left second maxillary molar.
Chest CT-03/13/2024-
Evaluation for peripheral pulmonary emboli is limited by suboptimal timing of the contrast bolus.
There are no large central pulmonary emboli
Mild cardiomegaly with mild pulmonary edema and small bilateral pleural effusions
Mediastinal lymphadenopathy
Postoperative changes with wire sternal sutures, prosthetic aortic valve and left atrial appendage clip
Peripheral vascular ultrasound-03/13/2024
Venous-right upper extremity-
Positive for nonocclusive thrombus in the right internal jugular vein, right subclavian, axillary veins, proximal basilic vein and brachial veins.
Chest x-ray-03/12/2024-
Right PICC line is present with its tip projecting near the cavoatrial junction. Patchy parenchymal opacity within both lower lungs which may represent edema.
Echocardiogram: Report Reviewed
Other: Image Reviewed
--- NOTE | 2024-03-14 10:27 | CM ---
Met with patient at bedside.
Await bed, transfer to [facility]
Dr. Jones states will call his mom (Tanya) [phone] to discuss.
PLAN: transfer, pending bed to [facility]
[2024-03-14 11:44] LABS: Hematocrit 32.1 % (39.0-52.0); Hemoglobin 10.5 g/dL (13.0-18.0); Mean Corp Hgb Conc. 32.7 g/dL (33.0-37.0); Mean Corpuscular Hgb 28.8 pg (27.0-31.0); Mean Corpuscular Volume 87.9 fL (80.0-94.0); Mean Platelet Volume 9.8 fL (7.4-10.4); Platelet Count 167 10^3/uL (130-400); Red Blood Cell Count 3.65 10^6/uL (4.70-6.10); Red Cell Dist. Width 15.3 % (11.5-14.5); White Blood Cell Count 5.3 10^3/uL (4.8-10.8)
[2024-03-14 11:56] VITALS: BP 126/78
[2024-03-14 12:00] LABS: Blood Urea Nitrogen 9 mg/dl (9-20); Calcium 9.1 mg/dl (8.4-10.2); Carbon Dioxide 25 mmol/L (22-30); Chloride 109 mmol/L (98-107); Estimated Creatinine Clearance > 125 ml/min; Glucose 89 mg/dl (70-99); Potassium 4.6 mmol/L (3.5-5.1); Sodium 142 mmol/L (135-145); eGFR > 60.00
[2024-03-14 12:11] LABS: Procalcitonin < 0.05 ng/ml (0.0-0.25)
[2024-03-14] MEDS: VANCOCIN IV (14:32)
[2024-03-14] MEDS: LASIX 40 MG IV (14:32)
--- NOTE | 2024-03-14 16:14 | PHA.VAN.FU ---
Vancomycin Assessment / Plan
- Assessment
Renal Function: Stable
WBC's are: WNL
In the past 24 hrs, patient has been: Afebrile
Concomitant Antimicrobials: piperacillin/tazobactam
- Dosing Plan
Continue: Vanc 750mg Q8H
- Monitoring Plan
Peak Level: 03/15 00:30
Trough Level: 03/16 05:30
Monitoring Comments: levels to be drawn after 5th maintenance dose
- Follow Up
Pharmacy will continue to follow.
Vancomycin Follow UP
- -
Patient Age: 29
Patient Sex: Male
Vancomycin Day #: 2
Indication: Endocarditis
Requesting Provider: Dr. Myles / Surinder
Pertinent Antimicrobial Allergies:
no pertinent antibiotic allergies
Height / Weight:
Height 5 ft 8 in
Actual Weight 66.423 kg
Pertinent Past Medical History: EMILY (sober 10+ years), MVR (2021, 2022)
- Vital Signs / Lab Results
Temp Pulse Resp BP Pulse Ox
97.4 F 85 18 126/78 100
03/14/24 11:56 03/14/24 11:56 03/14/24 11:56 03/14/24 11:56 03/14/24 11:56
Lab Results - Hematology
03/12/24 03/13/24 03/14/24
13:30 06:35 11:22
WBC 9.7 6.0 5.3
Lab Results - Chemistry
03/12/24 03/13/24 03/14/24
13:30 06:35 11:22
BUN 16 9 9
Creatinine 0.5 L 0.4 L 0.5 L
Estimated Creat Clear > 125 > 125
Albumin 4.6 3.5
03/12/24 03/12/24
13:30 16:30
Lactic Acid 1.0 Cancelled
Microbiology Results
03/12/24 13:30 Blood Culture - Preliminary
Blood/Venous No Growth in 48 hours- Final report to follow
03/13/24 11:36 Blood Culture - Preliminary
Blood/Venous No Growth in 24 hours- Final report to follow
03/13/24 13:08 Catheter Tip Culture - Preliminary
Catheter Tip No Growth After 18-24 Hours
03/13/24 04:01 MRSA Screen - Final
Nose No Methicillin Resistant Staphylococcus aureus isolated.
03/13/24 23:02 Influenza Types A & B (JAZLYN) - Final
Nasal Swab Negative for Influenza A & B, NAAT
Negative results must be combined with clinical observations
and patient history.
Nucleic Acid Amplification test (NAAT)performed on the
[employer] platform.
03/12/24 12:51 Influenza Types A & B (JAZLYN) - Final
Nasal Swab Negative for Influenza A & B, NAAT
Negative results must be combined with clinical observations
and patient history.
Nucleic Acid Amplification test (NAAT)performed on the
[employer] platform.
[2024-03-14 19:22] VITALS: BP 152/97
[2024-03-14 22:45] VITALS: BP 142/84
[2024-03-15 02:51] VITALS: BP 160/87
[2024-03-15 02:53] LABS: Vancomycin Peak 16.8 ug/ml (18-26)
[2024-03-15] MEDS: ZOSYN 100 IV ×2 (05:48→12:04)
[2024-03-15 06:07] LABS: Hematocrit 31.2 % (39.0-52.0); Hemoglobin 9.8 g/dL (13.0-18.0); Mean Corp Hgb Conc. 31.4 g/dL (33.0-37.0); Mean Corpuscular Hgb 27.4 pg (27.0-31.0); Mean Corpuscular Volume 87.2 fL (80.0-94.0); Mean Platelet Volume 9.2 fL (7.4-10.4); Platelet Count 203 10^3/uL (130-400); Red Blood Cell Count 3.58 10^6/uL (4.70-6.10); Red Cell Dist. Width 15.5 % (11.5-14.5)
[2024-03-15 06:23] LABS: Vancomycin Trough 9.7 ug/ml (5-20)
[2024-03-15 06:25] LABS: Blood Urea Nitrogen 18 mg/dl (9-20); Carbon Dioxide 30 mmol/L (22-30); Chloride 103 mmol/L (98-107); Estimated Creatinine Clearance > 125 ml/min; Glucose 86 mg/dl (70-99); Sodium 143 mmol/L (135-145); eGFR > 60.00
[2024-03-15] MEDS: VANCOCIN 150 IV (06:29)
[2024-03-15 08:00] VITALS: BP 149/91
--- NOTE | 2024-03-15 08:11 | PHA.VAN.FU ---
Vancomycin Assessment / Plan
- Assessment
Renal Function: Stable
WBC's are: WNL
In the past 24 hrs, patient has been: Afebrile
Concomitant Antimicrobials: piperacillin/tazobactam
- Assessment - Therapeutic Drug Monitoring
Extrapolated Cmax (mcg/mL): 21.5
Peak level was drawn: Appropriately (drawn ~2H after end of previous infusion)
Extrapolated Cmin (mcg/mL): 9
Trough Drawn: Appropriately
Levels were drawn: At steady state (levels drawn after 5th maintenance dose)
Calculated AUC (mcg*h/mL): 347
Calculated ke: 0.1248
Calculated half life (H): 5.6
Calculated Vd (L): 52 (~0.8 L/kg)
Calculated Vanc CL (ml/min): 108
- Dosing Plan
Adjust Regimen to: Vanc 1000mg Q8H starting at 1400
New Regimen Predicts: AUC (492), Peak (30.5), Trough (12.7)
- Monitoring Plan
No level(s) ordered at this time: consider repeat levels in next few days
- Follow Up
Pharmacy will continue to follow.
Vancomycin Follow UP
- -
Patient Age: 29
Patient Sex: Male
Vancomycin Day #: 3
Indication: Endocarditis
Requesting Provider: Dr. Myles / Surinder
Pertinent Antimicrobial Allergies:
no pertinent antibiotic allergies
Height / Weight:
Height 5 ft 8 in
Actual Weight 66.423 kg
Pertinent Past Medical History: EMILY (sober 10+ years), MVR (2021, 2022)
- Vital Signs / Lab Results
Temp Pulse Resp BP Pulse Ox
97.3 F 84 16 160/87 96
03/15/24 02:51 03/15/24 02:51 03/15/24 02:51 03/15/24 02:51 03/15/24 02:51
Lab Results - Hematology
03/12/24 03/13/24 03/14/24
13:30 06:35 11:22
WBC 9.7 6.0 5.3
03/15/24
05:39
WBC 6.0
Lab Results - Chemistry
03/12/24 03/13/24 03/14/24
13:30 06:35 11:22
BUN 16 9 9
Creatinine 0.5 L 0.4 L 0.5 L
Estimated Creat Clear > 125 > 125
Albumin 4.6 3.5
03/15/24
05:39
BUN 18
Creatinine 0.6 L
Estimated Creat Clear > 125
Albumin
03/12/24 03/12/24
13:30 16:30
Lactic Acid 1.0 Cancelled
Microbiology Results
03/12/24 13:30 Blood Culture - Preliminary
Blood/Venous No Growth in 48 hours- Final report to follow
03/13/24 11:36 Blood Culture - Preliminary
Blood/Venous No Growth in 24 hours- Final report to follow
03/13/24 13:08 Catheter Tip Culture - Preliminary
Catheter Tip No Growth After 18-24 Hours
03/13/24 04:01 MRSA Screen - Final
Nose No Methicillin Resistant Staphylococcus aureus isolated.
03/13/24 23:02 Influenza Types A & B (JAZLYN) - Final
Nasal Swab Negative for Influenza A & B, NAAT
Negative results must be combined with clinical observations
and patient history.
Nucleic Acid Amplification test (NAAT)performed on the
[employer] platform.
Therapeutic Drug Monitoring
Vancomycin Peak 16.8 ug/ml (18-26) L 03/15/24 01:15
Vancomycin Trough 9.7 ug/ml (5-20) 03/15/24 05:39
--- NOTE | 2024-03-15 08:19 | W.PN.HOSP.TC ---
Addendum entered and electronically signed by Nimesh Jones MD 03/15/24 14:58:
# Chronic pulmonary edema due to chronic diastolic heart failure
Original Note:
Today's Communication/Plan
-
Cleared by ID for discharge today
Resume previous IV ampicillin and Rocephin
Assessment / Plan
Assessment / Plan
HPI: 29-year-old male past medical history of hepatitis C, prior substance abuse disorder sober for 12 years, previous staph bacteremia resulting endocarditis and multifocal septic emboli status post mechanical mitral valve replacement in 2021
replaced with a bioprosthetic mitral valve in June 2022, recent admission in February of this year for recurring endocarditis/bacteremia, multifocal pneumonia Vent dependent respiratory failure and new aortic insufficiency/mitral valve mass for
which she was subsequently transferred to [facility] found to have MUSIC AUTOGRAPHER emboli, right ICA occlusion, mycotic aneurysm status post sternotomy, mitral valve replacement, aortic valve replacement discharged on 02/28 with home ampicillin/Rocephin to right upper
extremity PICC line presenting to the emergency room for evaluation of nausea and vomiting and found to have a fever upon arrival to the ER. He denies shortness of breath or cough. He only has chest pain when he was vomiting. He denies dizziness
or syncope.
At the present time patient just reports body aches, really feeling unwell and persistent fatigue. He denies currently using IV drugs 10 years. He is supposed to follow-up with neurology and cardiology but does not know when the follow-up is. He
smokes a pack of cigarettes a day.
# Systemic inflammatory response syndrome with fever and tachycardia, sepsis/pneumonia ruled out
# History of staph bacteremia with resulting in mitral endocarditis with multifocal septic emboli status post mechanical mitral valve replacement 2021, replaced with bioprosthetic mitral valve in June 2022, with recurrent endocarditis/bacteremia
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
-Chest x-ray shows patchy opacities within both lower lungs which may represent edema versus bilateral lower lobe pneumonia
-Patient currently has bioprosthetic aortic and mitral valves most recently replaced a few weeks ago at [facility]
-03/12 Blood culture NTD, 03/13 blood culture NTD, 03/13 PICC tip culture NTD
-Chest CT neg for PNA, shows pulm edema
-Appreciate ID input, antibiotics changed to Zosyn and vancomycin
-Infectious workup negative, fever likely due to RUE DVT
-Cleared by ID for discharge today
-Resume previous IV ampicillin and Rocephin upon dc
-Follow-up with his primary care doctor in 1 week, and the [facility] ID clinic on 03/26 as scheduled.
#Pulmonary edema
Status post IV Lasix
# Right upper extremity DVT
RUE US shows 'nonocclusive thrombus within the right internal jugular vein. Nonocclusive thrombus is also present within the right subclavian and axillary veins as well as the proximal basilic vein. There is nonocclusive clot within the visualized
brachial veins'
PICC pulled 03/[address] patient [address] surgery team, no anticoagulation secondary to history of hemorrhagic stroke in February 2024
Continue aspirin 81 mg daily
#Migraine headache
Continue valproic acid 500 mg twice a day
History of hepatitis C treated
Prior substance abuse with IV drug
-Not used in 10 years
-Continue Suboxone as needed
Daily smoker
-Continue patch
DVT prophylaxis�SCDs, patient refusing subcutaneous heparin
Full code
Discussed with mom twice on 03/13, 03/14, 03/15
Physical Exam
General: No acute distress
HEENT: Normocephalic, Atraumatic, EOMI, MMM
Respiratory: Clear to Auscultation bilaterally
Cardiac: Normal S1/S2, Regular Rate and Rhythm
GI: Soft, Nontender, Nondistended, Normal Bowel Sounds
Extremities: No Clubbing, Cyanosis
Right forearm with edema
Bilateral lower extremity edema noted
Neuro: Nonfocal/Grossly Intact
Anticipated Discharge: Today
Subjective/Interval History
-
Date of Service: March 15, 2024
Patient denies chest pain, shortness of breath, headache. No fever, no vomiting.
Objective Data
-
Labs:
Laboratory Results
03/15/24
05:39
WBC 6.0
Hgb 9.8 L
Hct 31.2 L
Plt Count 203 D
Sodium 143
Potassium 4.0
Chloride 103
Carbon Dioxide 30
BUN 18
Creatinine 0.6 L
Glucose 86
Calcium 9.0
Vital Signs:
Vital Signs
Temp Pulse Resp BP Pulse Ox
97.3 F 84 16 160/87 96
03/15/24 02:51 03/15/24 02:51 03/15/24 02:51 03/15/24 02:51 03/15/24 02:51
I&O
03/14/24 03/15/24 03/16/24
06:59 06:59 06:59
Intake Total 1500 / 1500 1050 / 1050
Balance 1500 / 1500 1050 / 1050
[2024-03-15] MEDS: NICODERM TRANSDERMAL 14 MG TRANSDERM (08:27)
[2024-03-15] MEDS: DEPAKENE 500 MG PO (08:28)
[2024-03-15] MEDS: LOW STRENGTH ASPIRIN 81 MG PO (08:28)
[2024-03-15] MEDS: PEPCID 20 MG PO (08:28)
[2024-03-15] MEDS: LASIX 40 MG IV (08:28)
[2024-03-15] MEDS: TOPROL XL 25 MG PO (08:28)
--- NOTE | 2024-03-15 10:25 | PN.CDI ---
CDI
- -
CDI:
Physician Documentation Request
Admit Date: 03/12/24 20:51
Dear Doctor Do,
Clinical Indicators:
Patient admitted with fever; PMH includes: mitral and aortic valve replacements 02/2024.
03/12, 03/13 NSS 1 L bolus + maintenance fluids given.
03/13 Echocardiogram report, 'Normal left ventricular size, wall thickness and systolic function. No regional
wall motion abnormalities are seen. LV ejection fraction is 62% by volumetric assessment...Diastolic function
indeterminate.'
03/14 PN, 'Pulmonary edema'
Lasix 40 mg IV daily ordered.
Please clarify the acuity and etiology of the pulmonary edema:
Acute non-cardiac pulmonary edema due to fluid overload
Acute pulmonary edema due to heart failure (please specify type and acuity)
Type: systolic, diastolic, combined or other type
Acuity: acute (new onset), chronic or acute on chronic
Chronic pulmonary edema due to non-cardiac etiology (specify cause)
Chronic pulmonary edema due to heart failure - (specify type and acuity as above)
Other, please specify
Use of terms such as suspected, likely, concern for, or probable (associated with a specific diagnosis that is being evaluated, monitored, or treated as if it exists) are acceptable and can be coded in the inpatient setting, when documented at the
time of discharge.
Thank you,
Maggy Bowers RN BSN
CDI Specialist
available via tiger text
Please use your independent medical judgment in providing your response.
[2024-03-15 11:25] VITALS: BP 153/93
--- NOTE | 2024-03-15 12:48 | W.PN.ID1 ---
Addendum entered and electronically signed by Fany Cadena MD 03/15/24 13:06:
I saw and evaluated the patient. I reviewed the resident�s note and agree with findings and plan as documented in the resident�s note.
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 Previously on suppression for S aurues, then with relapse of endocarditis this due to to Enterococcus. Source
of Enterococcus was cryptogenic and hypothesized to be GI. He is s/p redo MVR/AVR on 02/19/2024 and was discharged on continuous ampicillin plus BID ceftriaxone and presented here 03/12 for fever, chills, reported redness around picc line (not seen
on my exam) Blood cultures and PICC tip culture all in progress and no growth to date. Fever has resolved over 48 horus and he is asymptomatic
H/o redo MVR 02/19/24 and AVR presumably due to enterococcus
Prior history of MVR x2 due to MSSA
Fevers - resolved
Migraine
DVT
- blood cultures x3 in progress, no growth to date
- PICC removed and cath tip sent for culture - no growth to date
- TTE no lesions
- CT PE: no PE, mediastinal lymphadenopathy is noted and was expected given recent endocarditis
- panelipse - radicular cyst suggests resolved odontogenic infection - follow up with OMFS when cleared by CT surgery
- was on empiric vancomycin/zosyn, however no infectious cause of fever IDd possibly it was due to DVT. Restart ampicillin ceftriaxone at home - to complete the planned course
- has follow up at [facility] ID clinic 03/26 already scheduled, left message describing his admission and plan to return to previously planned antibiotics
AW
Original Note:
Date of Service
Date of Service: March 15, 2024
Today's Communication
Continue vancomycin and zosyn.
Assessment / Plan
Assessment -
subjective - febrile, tachycardic, tachypnea - SIRS positive.
Objective - WBC count - 6.2, left shift, Hb - 10.9 to 9.2, normocytic anemia, platelet count - abnormal, chemistry - hyperkalemia - mild - 5.2, resolved., sr cr - 0.5, AST, ALT - normal, ALP - 193.
echocardiogram - LVEF - 62%, biprosthetic valves look normal.
CT chest - No emboli in large pulmonary vessels.
CXR - pulmonary edema
Orthopantogram-7.5 mm radicular cyst at the posterior root of the first mandibular molar, root canal with a crown at left second maxillary molar.
MVR redo and AVR on 02/19/24.
Fevers
DVT.
Plan -
Blood cultures X 2 - no growth for 48 hrs.
PICC tip cultures - negative.
COVID and flu negative,
staph X 3 endocarditis. Diagnosis less likely to be endocarditis. Source of sepsis still remains unknown.
Antibiotics used by patient since 2021-rifampin 300 mg, cefuroxime 200 mg, cefadroxil 500 mg for 1 year from August 2022 to August 2023.
Recent enterococcus endocarditis.
Continue vancomycin -day 4. Zosyn-day 3. Patient's ampicillin and sulbactam are in hold.
Chief Complaint
-: Fever and Clinical Sepsis
Subjective / Review of Systems
Review of Systems: No Fever, No Chills, No Headache, No Cough, No Sputum Production, No Chest Pain, No Palpitations, No Abdominal Pain, No Nausea and No Vomiting
Vital Signs / Physical Exam
Vital Signs
Vital Signs
Temp Pulse Resp BP Pulse Ox
98.1 F 100 18 153/93 98
03/15/24 11:25 03/15/24 11:25 03/15/24 11:25 03/15/24 11:03/15/24 12:43
Physical Exam
Constitutional: Comfortable
Cardiovascular: Regular Rate, S1/S2 and Murmur; Negative Rub or Gallop
Pulmonary: Clear; Negative Wheezes, Rales or Rhonchi
Gastrointestinal: Soft, Non Tender, Non Distended and Normal Bowel Sounds
Extremities: Edema
Skin: Warm
Neurological: Awake
Psychological: Calm
Objective Data
Lab Data
Lab Results
03/15/24 05:39
03/15/24 05:39
PT 14.2 Sec (11.4-14.6) 03/12/24 13:30
INR 1.12 03/12/24 13:30
Estimated Creat Clear > 125 ml/min 03/15/24 05:39
Lactic Acid Cancelled 03/12/24 16:30
Total Bilirubin 0.4 mg/dl (0.2-1.3) 03/13/24 06:35
AST 24 U/L (17-59) 03/13/24 06:35
ALT 25 U/L (0-50) 03/13/24 06:35
Alkaline Phosphatase 130 U/L (38-126) H 03/13/24 06:35
Most recent labs reviewed.
Micro Results:
03/13/24 11:36 Blood Culture - Preliminary
Blood/Venous No Growth in 48 hours- Final report to follow
03/13/24 13:08 Catheter Tip Culture - Preliminary
Catheter Tip No Growth After 48 Hours
03/12/24 13:30 Blood Culture - Preliminary
Blood/Venous No Growth in 48 hours- Final report to follow
03/13/24 04:01 MRSA Screen - Final
Nose No Methicillin Resistant Staphylococcus aureus isolated.
03/13/24 23:02 Influenza Types A & B (JAZLYN) - Final
Nasal Swab Negative for Influenza A & B, NAAT
Negative results must be combined with clinical observations
and patient history.
Nucleic Acid Amplification test (NAAT)performed on the
[employer] platform.
03/12/24 12:51 Influenza Types A & B (JAZYLN) - Final
Nasal Swab Negative for Influenza A & B, NAAT
Negative results must be combined with clinical observations
and patient history.
Nucleic Acid Amplification test (NAAT)performed on the
[employer] platform.
Orthopantogram-03/13/2024-
There is a 7.5 mm radicular cyst at the posterior root of the left first mandibular molar.
There is dental amalgam
There is root canal with a crown at the left second maxillary molar.
Chest CT-03/13/2024-
Evaluation for peripheral pulmonary emboli is limited by suboptimal timing of the contrast bolus.
There are no large central pulmonary emboli
Mild cardiomegaly with mild pulmonary edema and small bilateral pleural effusions
Mediastinal lymphadenopathy
Postoperative changes with wire sternal sutures, prosthetic aortic valve and left atrial appendage clip
Peripheral vascular ultrasound-03/13/2024
Venous-right upper extremity-
Positive for nonocclusive thrombus in the right internal jugular vein, right subclavian, axillary veins, proximal basilic vein and brachial veins.
Chest x-ray-03/12/2024-
Right PICC line is present with its tip projecting near the cavoatrial junction. Patchy parenchymal opacity within both lower lungs which may represent edema.
[2024-03-15] MEDS: VANCOCIN 200 IV (13:55)
--- NOTE | 2024-03-15 14:08 | W.DCSUMMARY ---
Discharge Summary
Discharge Data
Date of Admission: 03/12/24
Date of Discharge: 03/15/24
-
Pending Results: No
Hospital Course
Discharge diagnosis:
Fever, likely from right upper extremity deep vein thrombosis
Acute right upper extremity deep vein thrombosis
Systemic inflammatory response syndrome with fever and tachycardia
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
History of hemorrhagic stroke in February 2024
Chronic pulmonary edema from chronic diastolic heart failure
Migraine headaches
Right internal carotid artery occlusion
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
Cigarette nicotine dependency
History of hepatitis C, status posttreatment
Consults: ID
Right upper extremity ultrasound:
Nonocclusive thrombus within the right internal jugular vein. Nonocclusive thrombus is also present within the right subclavian and axillary veins as well as the proximal basilic vein. There is nonocclusive clot within the visualized brachial veins.
Chest CT:
1).Evaluation for peripheral pulmonary emboli is limited by suboptimal timing of the contrast bolus.
There are no large central pulmonary emboli
2). Mild cardiomegaly with mild pulmonary edema and small bilateral pleural effusions
3). Mediastinal lymphadenopathy
4). Postoperative changes with wire sternal sutures, prosthetic aortic valve and left atrial appendage clip
Hospital course:
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
endocarditis/bacteremia due to enterococcus with new mitral valve mass complicated by [employer] emboli, right ICA occlusion, mycotic aneurysm s/p redo MVR, AVR and discharged 02/29/24 with course of ampicillin/ceftriaxone via PICC, presented for nausea and
vomiting and was found to have a fever in the ED. Patient was admitted for fever and tachycardia, concerning for recurrent sepsis and bacteremia.
Patient was initially continued on his home ampicillin and Rocephin. Vancomycin was added. Patient was seen in conjunction with ID. ID transitioned him to Zosyn/vancomycin. Blood cultures x 2 were negative. His fever resolved.
Patient had swelling of his right forearm. Right upper extremity Dopplers confirmed DVT. Patient has a history of recent hemorrhagic stroke in February 2024. He was seen by neurology at [place] at that time, and recommended to avoid systemic
anticoagulation. He can continue aspirin 81 mg daily.
His right PICC was pulled, and cultured. His PICC catheter culture was negative.
After several days, patient's infectious workup remained negative. He had a new PICC inserted in his left arm. He is medically stable and cleared by ID for discharge. He can continue his previous course of IV ampicillin and Rocephin as directed
by his [facility] ID team. He needs to follow-up with his primary care doctor in 1 week, and keep his appointment with his [facility] ID team on 03/26/2024.
Disposition: Home self-care
Discharge planning: Required 60 minutes
Discharge Plan
-
Patient Disposition: Home (Routine Discharge)
Discharge Diagnosis/Procedures: Fever, likely from right arm deep vein thrombosis, mild pulmonary edema, history of bacteremia, history of endocarditis
Condition: Good
Diet: Regular
Activity: As tolerated
Driving Restrictions: As prior to admission
Activity Restrictions/Additional Instructions:
Continue your ampicillin and Rocephin as previously directed by your [facility] ID team.
Follow-up with your primary care doctor in 1 week, and the [facility] ID clinic on 03/26 as scheduled.
Referrals:
Joby Coronel MD [Family Provider] - in one week
Prescriptions:
Continued
cyclobenzaprine 10 mg Tablet
10 mg PO HS
valproic acid 250 mg Capsule
500 mg PO BID
famotidine 20 mg Tablet
20 mg PO DAILY
modafinil 200 mg Tablet
200 mg PO QPMPRN PRN (Reason: sleepiness)
modafinil 200 mg Tablet
200 mg PO DAILY
ibuprofen 400 mg Tablet
400 mg PO Q6HPRN PRN (Reason: mild pain)
aspirin 81 mg Tablet,Chewable
81 mg PO DAILY
metoprolol succinate 25 mg Tablet Extended Release 24 Hr
25 mg PO DAILY
buprenorphine HCl 8 mg Tablet, Sublingual
8 mg SUBLINGUAL DAILYPRN PRN (Reason: substance abuse)
nicotine (polacrilex) 2 mg Lozenge
2 mg BUCCAL DAILYPRN PRN (Reason: dependence)
magnesium oxide 400 mg magnesium Tablet
400 mg PO DAILY
ceftriaxone 2 gram Recon Soln
2 g IV Q12H
Patient Comments:
03/12/24: Patient does not recall dosage
ampicillin sodium 2 gram Recon Soln
2 g IV Q12H
Nurtec ODT 75 mg Tablet,Disintegrating
75 mg PO [id number] PRN (Reason: migraines)
Patient Comments:
patient has free samples
Discharge Orders:
Discharge Patient (As Directed); Ordered 03/15/24
Ordered By: Nimesh Jones
Discharge Date and Time
Discharge Date/Time: 03/15/24 19:20
Print Language: GERMAN
[2024-03-15] MEDS: NSS (PRESERVATIVE FREE) 0.25 ML IV (15:24)
[2024-03-15] MEDS: ATIVAN 0.5 MG IV (15:24)
--- NOTE | 2024-03-15 15:37 | CM ---
Patient seen along with mom.
Spoke with Mignon from [facility] [phone]
Patient will be discharged home today after PICC placement.
Will be resuming with [facility] (Team JULIOCESAR ARDON)
Script faxed to [phone] along with clinicals. PICC Data & xray to follow once completed.
PLAN: Discharge to home with [facility] Fax #:[phone]
[2024-03-15 16:56] VITALS: BP 138/85
--- NOTE | 2024-03-16 09:54 | CM ---
Late entry
X-ray faxed to [facility] [phone]
== END 2024-03-15 19:20 | disposition home or self-care (01) | DRG 300 ==
LOC: 2 NORTH 20:51
PROVIDERS: Physician Assistant; ADMITTING PHYSICIAN Hospitalist; ATTENDING PHYSICIAN Family Medicine; CONSULT PHYSICIAN Student in an Organized Health Care Education/Training Program; EMERGENCY PHYSICIAN Emergency Medicine; FAMILY PHYSICIAN Internal Medicine
DX: I82.621 Acute embolism and thrombosis of deep veins of right upper extremity (principal); I50.32 Chronic diastolic (congestive) heart failure; R65.10 Systemic inflammatory response syndrome (SIRS) of non-infectious origin without acute organ dysfunction; B95.8 Unspecified staphylococcus as the cause of diseases classified elsewhere; Z11.52 Encounter for screening for COVID-19; F17.210 Nicotine dependence, cigarettes, uncomplicated; Z75.1 Person awaiting admission to adequate facility elsewhere
CPT/HCPCS: 70355; 71045; 71275; 80048; 80053; 80202; 80306; 80307; 81003; 83605; 84145; 85025; 85027; 85610; 87040; 87070; 87084; 87502; 87811; 93005; 93306; 93971; J2997; Q9967